=== PATIENT | female | born 1995 | race Caucasian/White ===

== ENCOUNTER 2016-10-09 14:53 | Emergency (ER) | payer BC, OTHER ==
[~2016-10-09] VITALS: Wt 67.0 kg
[2016-10-09] MEDS ORDERED: ONDANSETRON 4 MG INJ IV STA ×2 (17:35→20:30)
[2016-10-09] MEDS ORDERED: SOD CHLORIDE 0.9% 1,000 ML IV ONE (18:00)
--- NOTE | 2016-10-09 18:23 | ERA ---
ER Documentation Chief Complaint Date/Time DATE: 10/09/16 TIME: 18:01 Chief Complaint 8 WEEKS PREG WITH N/V HPI Patient is a 20-year-old female who presents with boyfriend stating that she found out she was 1 week ago. Her last menstrual period started on July 01, 2016. Patient initially saw to get a test because of morning sickness type symptoms. Patient's symptoms include nausea and vomiting and not tolerating liquids or solids by mouth. Patient saw a fertility clinic who told her to come to the ER to see if we could do anything for her. Patient denies any fever, vaginal bleeding/discharge, dysuria, hematuria, abdominal pain, pelvic pain, headache, altered mental status. Nothing makes his symptoms worse except for eating which makes her vomit. Patient states nothing has improved the symptoms. There are no other associated manifestations. Has not taken any medications to relieve symptoms. ROS All systems reviewed and are negative except as per history of present illness. Medications Home Meds Active Scripts Ondansetron (Ondansetron Odt) 4 Mg Tab.rapdis, 4 MG PO Q6H Y for NAUSEA AND/OR VOMITING, #10 TAB Prov:IRENE BANUELOS PA-C 10/09/16 Allergies Allergies: Coded Allergies: No Known Allergy (Unverified , 10/09/16) PMhx/Soc Medical and Surgical Hx: pt denies Medical Hx, pt denies Surgical Hx Hx Alcohol Use: No Hx Substance Use: No Hx Tobacco Use: No Smoking Status: Never smoker Physical Exam Vitals Vital Signs Date Time Temp Pulse Resp B/P Pulse Ox O2 Delivery O2 Flow Rate FiO2 10/09/16 20:46 98.5 83 18 105/67 99 Room Air 10/09/16 15:10 99.0 108 18 129/81 99 Physical Exam Const: Well-appearing 20-year-old female with her Head: Atraumatic Eyes: Normal Conjunctiva ENT: Normal External Ears, Nose and Mouth. Neck: Full range of motion..~ No meningismus. Resp: Clear to auscultation bilaterally Cardio: Regular rate and rhythm, no murmurs Abd: Soft, non tender, non distended. Normal bowel sounds Skin: No petechiae or rashes Back: No midline or flank tenderness Ext: No cyanosis, or edema Neur: Awake and alert Psych: Normal Mood and Affect Results 24 hrs Current Medications Medications (Trade) Dose Ordered Sig/Kia Route PRN Reason Start Time Stop Time Status Last Admin Dose Admin Sodium Chloride (NS) 1,000 ml @ 1,000 mls/hr Q1H ONCE IV 10/09/16 18:00 10/09/16 18:59 DC 10/09/16 18:04 Ondansetron HCl (Zofran Inj) 4 mg ONCE STAT IV 10/09/16 17:35 10/09/16 17:38 DC Ondansetron HCl (Zofran Inj) 4 mg ONCE STAT IV 10/09/16 20:30 10/09/16 20:31 DC 10/09/16 20:36 Procedures/MDM Patient is a 20-year-old female presents with her boyfriend 1 week after finding out she is complaining of nausea and vomiting and not being able to tolerate food or liquids. Patient has no other complaints besides a resting tremor that comes and goes. Has not tried anything to relieve the symptoms. We will go ahead and give her an IV bolus and Zofran for nausea then reevaluate for p.o. tolerance. Patient has expressed concern about using Zofran during . Patient is more than 13 weeks past her last menstrual period. Have educated the patient about the small risk of thrombogenicity. Patient says she was recommended Reglan. Have told the patient that Reglan is also acceptable for and is a category B risk, explaining to her what the category B risk meant. I told the patient that my coworkers and I have mostly prescribed Zofran in the ER for nausea including and patients. Patient said that she is fine with Zofran if there is not a significant risk. Upon reevaluation of the patient she is able to tolerate solids and liquids and is now willing to go home because she says her stomach pain nausea has resolved. Departure Condition: Stable IRENE BANUELOS PA-C Oct 09, 2016 18:23
[2016-10-09 20:46] VITALS: BP 105/67; PULSE 83; RESP 18; TEMP 98.5
[2016-10-09] MEDS ORDERED: ONDA4TAB14 PO (20:52)
== END 2016-10-09 21:03 | disposition home or self-care (01) ==
LOC: FTE 14:53
DX: O21.9 Vomiting of pregnancy, unspecified (principal); Z3A.08 8 weeks gestation of pregnancy
CPT/HCPCS: 96374; 99284; J2405; J7030

== ENCOUNTER 2017-06-01 05:46 | Inpatient (IN) | payer OTHER ==
[~2017-06-01] VITALS: Ht 160 cm; Wt 77.2 kg
[~2017-06-01 05:46] MED LIST: ONDA4TAB14 PO
[2017-06-01] MEDS ORDERED: LACTATED RINGER'S 1,000 ML IV PRN (06:15)
[2017-06-01] MEDS ORDERED: LIDOCAINE 1% (MPF) 30 ML INJ INJ PRN (06:30)
[2017-06-01] MEDS ORDERED: IBUPROFEN 600 MG TAB PO PRN (06:30)
[2017-06-01] MEDS ORDERED: CARBOPROST 250 MCG INJ IM PRN (06:30)
[2017-06-01] MEDS ORDERED: BUTORPHANOL 2 MG INJ IV PRN ×2 (06:30)
[2017-06-01] MEDS ORDERED: HYDROCODONE/APAP (5/325) TAB PO PRN (06:30)
[2017-06-01] MEDS ORDERED: OXYTOCIN 30 UNITS/LR 500 ML IV PRN (06:30)
[2017-06-01] MEDS ORDERED: OXYTOCIN 30 UNITS/LR 500 ML IV SCH ×2 (06:30)
[2017-06-01] MEDS ORDERED: MISOPROSTOL 200 MCG TAB PR PRN (06:30)
[2017-06-01] MEDS ORDERED: METHYLERGONOVINE 0.2 MG INJ IM PRN (06:30)
[2017-06-01 06:34] VITALS: Ht 160 cm; Wt 77.2 kg
[2017-06-01 06:40] VITALS: BP 118/81; PULSE 103; RESP 18
[2017-06-01] MEDS: LACTATED RINGER'S 1,000 ML IV SCH ×3 (06:43→22:03)
[2017-06-01 07:03] LABS: BASOPHIL # 0.1 10^3/ul (0.0-0.1); BASOPHILS % 0.5 % (0.0-2.0); EOSINOPHILS # 0.1 10^3/ul (0.0-0.5); EOSINOPHILS % 0.9 % (0.0-7.0); HEMATOCRIT 37.2 % (37.0-47.0); HEMOGLOBIN 12.3 g/dl (12.0-16.0); LYMPHOCYTES # 1.9 10^3/ul (0.8-2.9); MEAN CORPUSCULAR HEMOGLOBIN 27.6 pg (29.0-33.0); MEAN CORPUSCULAR HGB CONC 33.1 g/dl (32.0-37.0); MEAN CORPUSCULAR VOLUME 83.4 fl (82.0-101.0); MEAN PLATELET VOLUME 12.4 fl (7.4-10.4); MONOCYTE # 0.6 10^3/ul (0.3-0.9); MONOCYTES % 4.9 % (0.0-11.0); NEUTROPHIL # 9.2 10^3/ul (1.6-7.5); NEUTROPHILS % 76.7 % (39.0-77.0); PLATELET COUNT 196 10^3/UL (140-415); RED BLOOD COUNT 4.46 10^6/ul (4.20-5.40); RED CELL DISTRIBUTION WIDTH 14.2 % (11.5-14.5)
[2017-06-01 07:25] LABS: INR 0.93; PARTIAL THROMBOPLASTIN TIME 28.8 Sec (25.0-35.0); PROTIME 12.5 Sec (12.2-14.2)
[2017-06-01 07:28] LABS: ALANINE AMINOTRANSFERASE 28 IU/L (13-69); ALBUMIN 3.4 g/dl (3.3-4.9); ALBUMIN/GLOBULIN RATIO 1.03; ALKALINE PHOSPHATASE 154 IU/L (42-121); ANION GAP 14 (8-16); ASPARTATE AMINO TRANSFERASE 16 IU/L (15-46); BILIRUBIN,INDIRECT 0.3 mg/dl (0-1.1); BILIRUBIN,TOTAL 0.3 mg/dl (0.2-1.3); BLOOD UREA NITROGEN 7 mg/dl (7-20); CALCIUM 9.2 mg/dl (8.4-10.2); CARBON DIOXIDE 23 mmol/L (21-31); CHLORIDE 107 mmol/L (97-110); CREATININE 0.51 mg/dl (0.44-1.00); GLUCOSE 78 mg/dl (70-220); POTASSIUM 4.4 mmol/L (3.5-5.1); SODIUM 140 mmol/L (135-144); TOTAL PROTEIN 6.7 g/dl (6.1-8.1)
[2017-06-01 07:39] LABS: BARBITURATES Negative (NEGATIVE); BENZODIAZEPINES Negative (NEGATIVE); CANNABINOIDS Negative (NEGATIVE); COCAINE Negative (NEGATIVE); OPIATES Negative (NEGATIVE)
--- NOTE | 2017-06-01 08:08 | RADRPT ---
PROCEDURE: US OB. CLINICAL INDICATION: Size and dates TECHNIQUE: Multiple sonographic images of the pelvis and gravid uterus were obtained. The images were reviewed on a PACS workstation. COMPARISON: No prior studies are available for comparison. FINDINGS: There is a single viable intrauterine gestation. Cardiac activity is present with 138 beats per min gerardo. There is a vertex presentation. The placenta is anterior. There is no evidence for an abruption or placenta previa. Measurements were made in order to determine age. The results are as follows: BPD =9.3 cm HC =32.2 cm AC =35.4 cm FL =7.2 cm Estimated gestational age of approximately 37 weeks and 4 days based on ultrasound measurements. Clinical age: 39 weeks and 2 days. The estimated date of delivery is 06/18/17, based on ultrasound measurements. The EFW = 3426 g, 44%, based on LMP age. RPTAT: AA IMPRESSION: Single viable intrauterine gestation of approximately 37 weeks and 4 days based on ultrasound measu rements. Smaller than clinical age by approximately 2 weeks. .Javier Anand MD, MD Date Time Electronically viewed and signed by .Javier Anand MD, on 06/01/2017 08:08 .S/
[2017-06-01] MEDS ORDERED: DINOPROSTONE 10 MG VAG SUPP VAG ONE (09:00)
--- NOTE | 2017-06-01 19:37 | PREOPHP ---
DATE OF ADMISSION: 06/01/2017 HISTORY OF PRESENT ILLNESS: Ms. Azra Ochoa is a 21-year-old 1, para 0 , EDC 06/06/2017, intrauterine at 39 weeks and 2 days gestational age , admitted today for a social induction. The patient reports she lives in [place] and is far from the hospital. She is currently on Cervidil for cervical ripening. She reports positive movement and having regular contractions with the Cervidil. She denies any vaginal bleeding or discharge. Her care took place at the [facility]. MEDICAL HISTORY: None. MEDICATIONS: vitamins. PAST SURGICAL HISTORY: None. OBSTETRIC HISTORY: Primigravid. GYNECOLOGIC HISTORY: 12, regular, 3 to 4 days. Denies any sexually transmitted diseases. Sexually active with 1 partner. SOCIAL HISTORY: Denies any smoking, drugs or alcohol. FAMILY HISTORY: None. REVIEW OF SYSTEMS: All within normal except history of present illness. PHYSICAL EXAMINATION: HEENT: Within normal. LUNGS: CTA bilateral. CARDIOVASCULAR: S1, S2, regular rhythm. ABDOMEN: Gravid, nontender. Negative CVA bilateral. EXTREMITIES: Negative edema. No calf tenderness. PELVIC: Vaginal exam 2, 50, -3. heart tracing category 1. [place]: Regular contractions. ASSESSMENT: A 21-year-old 1, para 0, intrauterine at 39 weeks and 2 days gestational age, admitted for Social induction, currently on Cervidil for cervical ripening. PLAN: I removed Cervidil. The patient will take a shower with pelvic rest and will re-evaluate the patient in 3 to 4 hours for Pitocin induction. Dictated By: IRENE FERGUSON/MAKEDA Conf#: [id number] DID#: [id number] CC: IRENE RED MD;*EndCC* MTDD
[2017-06-01] MEDS ORDERED: OXYTOCIN 30 UNITS in LACTATED RINGER'S 497 ML IV SCH (22:00)
[2017-06-01] MEDS ORDERED: FENTAnyl 2MCG/ML-ROPIV 0.2% 100 ML ONE (23:12)
[2017-06-01] MEDS ORDERED: ONDANSETRON 4 MG INJ IV PRN (23:30)
[2017-06-01] MEDS ORDERED: NALOXONE (0.4 MG/ML) INJ IV PRN (23:30)
[2017-06-01] MEDS ORDERED: DIPHENHYDRAMINE 50 MG INJ IV PRN (23:30)
[2017-06-02] MEDS: FENTAnyl 2MCG/ML-ROPIV 0.2% 100 ML BAG EPI SCH ×4 (06:01→22:59)
--- NOTE | 2017-06-02 06:28 | QN ---
Documentation Comment Progress note labor delivery Patient seen and evaluated awake alert oriented 3 no apparent distress positive epidural Vital signs stable afebrile Abdomen gravid nontender Extremity negative edema no calf tenderness Vaginal exam 3 cm dilated 70% effaced -1 station intact heart rate category 1 [place] regular contractions Assessment interim at 39 weeks gestational age admitted for social induction currently on Pitocin Plan expected vaginal delivery Continue present management IRENE RED MD Jun 02, 2017 06:28
[2017-06-02] MEDS: LACTATED RINGER'S 1,000 ML IV SCH ×3 (06:51→20:17)
[2017-06-02] MEDS ORDERED: PNV11TAB PO (08:12)
[2017-06-02] MEDS ORDERED: DEXTROSE 5%-LR 1,000 ML IV SCH (13:00)
[2017-06-02] MEDS ORDERED: ACETAMINOPHEN 325 MG TAB PO ONE (20:00)
--- NOTE | 2017-06-02 21:30 | QN ---
Documentation Comment requested to insert IUPC by her OB\VE /%/-2 small caput succedaneum noted IUPC was inserted XOCHITL WATSON MD Jun 02, 2017 21:30
[2017-06-03] MEDS ORDERED: CLINDAMYCIN 900 MG/D5W (PMX) 50 ML IV SCH (04:00)
--- NOTE | 2017-06-03 04:12 | QN ---
Documentation Comment patient seen and evaluated patient has no complaints positive epidural vs stable afebrile abd soft gravid nt extremity no edema no calf tenderness ve 5/90/-2 srom fhr cat 1 a/ iup at 39wks ga, in labor, arrest in dilation p/ consent for primary CD r/b/a/ explained consent sign in chart IRENE RED MD Jun 03, 2017 04:12
[2017-06-03] MEDS: GENTAMICIN 120 MG/NS (PMX) 100 ML IVPB SCH (04:17)
[2017-06-03] MEDS ORDERED: LIDOCAINE 2%/EPI 30 ML INJ ONE (04:34)
[2017-06-03] MEDS ORDERED: PHENYLephrine (100 MCG/ML) 5ML SYG ONE ×2 (04:40→05:14)
[2017-06-03] MEDS ORDERED: morphine SULFATE/PF (10 MG/10 ML) INJ ONE (04:53)
--- NOTE | 2017-06-03 05:37 | OPPN ---
Date/Time of Note Date/Time of Note DATE: 06/03/17 TIME: 05:34 Operative Report Planned Procedure Free Text/Dictation iup at 39 wks ga, in labor, arrest of dilation Procedure date Jun 03, 2017 Procedure(s) primary low transverse CD Performed by see signature line [employer] Rep[employer]r Dr. Echevarria Pre-procedure diagnosis iup at 39 wks ga, in labor, arrest of dilation Anesthesia Type: epidural Post-Procedure Post-procedure diagnosis Same Findings Live Baby [male], Apgars [8] and [9], weight [7lb 2oz], position [OP], [vtx] presentation []cord. Estimated Blood Loss: 500 - 600 mls Specimen(s) none Grafts/Implant(s) none Complication(s) none IRENE RED MD Jun 03, 2017 05:37
[2017-06-03] MEDS ORDERED: CARBOPROST 250 MCG INJ IM PRN ×2 (06:00→11:00)
[2017-06-03] MEDS ORDERED: ONDANSETRON 4 MG INJ IV PRN ×2 (06:00)
[2017-06-03] MEDS ORDERED: MISOPROSTOL 200 MCG TAB PR PRN (06:00)
[2017-06-03] MEDS ORDERED: OXYCODONE/ACETAMINOPHEN (5/325) TAB PO PRN ×2 (06:00)
[2017-06-03] MEDS ORDERED: HYDROmorphONE (0.2 MG/ML) 10ML SYG IV PRN ×2 (06:00)
[2017-06-03] MEDS ORDERED: NALOXONE (0.4 MG/ML) INJ IV PRN (06:00)
[2017-06-03] MEDS ORDERED: IBUPROFEN 600 MG TAB PO SCH (06:00)
[2017-06-03] MEDS ORDERED: FENTAnyl 50 MCG/ML VIAL IV PRN ×2 (06:00)
[2017-06-03] MEDS ORDERED: HYDROmorphONE 0.5 MG/0.5 ML SYG IV PRN ×2 (06:00)
[2017-06-03] MEDS ORDERED: KETOROLAC 30 MG INJ IV PRN (06:00)
[2017-06-03] MEDS ORDERED: LANOLIN 7 GM TUBE TOP PRN (06:00)
[2017-06-03] MEDS ORDERED: OXYTOCIN 30 UNITS/LR 500 ML IV PRN (06:00)
[2017-06-03] MEDS ORDERED: DIPHENHYDRAMINE 50 MG INJ IV PRN ×2 (06:00)
[2017-06-03] MEDS ORDERED: METOCLOPRAMIDE 10 MG INJ IV PRN (06:00)
[2017-06-03] MEDS ORDERED: ZOLPIDEM 5 MG TAB PO PRN (06:00)
[2017-06-03] MEDS ORDERED: METHYLERGONOVINE 0.2 MG INJ IM PRN (06:00)
[2017-06-03] MEDS: KETOROLAC 30 MG INJ IV PRN ×2 (07:18→16:18)
[2017-06-03 09:00] VITALS: BP 105/71; PULSE 83; RESP 18
[2017-06-03] MEDS: SENNA/DOCUSATE NA (8.6MG/50MG) TAB PO SCH ×2 (09:00→21:00)
[2017-06-03 09:30] VITALS: BP 102/81; RESP 18
[2017-06-03] MEDS: LACTATED RINGER'S 1,000 ML IV SCH ×2 (11:42→13:37)
[2017-06-03] MEDS: CLINDAMYCIN 900 MG/D5W (PMX) 50 ML IVPB SCH ×2 (11:45→20:22)
--- NOTE | 2017-06-03 14:07 | OPR ---
DATE OF OPERATION: 06/03/2017 PRIMARY DIAGNOSIS: A 21-year-old 1, para 0, intrauterine at 39 weeks gestational age in labor, arrest in dilatation. POSTOPERATIVE DIAGNOSIS: A 21-year-old 1, para 0, intrauterine at 39 weeks gestat ional age in labor, arrest in dilatation. PROCEDURE: Primary low transverse delivery via Pfannenstiel incision. SURGEON: Dr. Ibrahim. FUND CONTROLLER: Dr. Echevarria ANESTHESIA: Epidural. COMPLICATIONS: None. ESTIMATED BLOOD LOSS: 500 mL. FINDINGS: A viable male in cephalic presentation, 8 and 9 respectively at 1 and 5 jennifer ana, weight 7 pounds 2 ounces, in OP presentation. Normal uterus, tubes and ovaries. DESCRIPTION OF PROCEDURE: After explaining the risks, benefits and alternatives and consent signed in chart, the patient was taken to the operating room where epidural anesthesia was found to be adeq uate. She was then prepared and draped in normal sterile fashion in dorsal supine position with a l eftward tilt. A Pfannenstiel skin incision was then made with a scalpel and carried to the underlyi ng layer of the fascia. The fascia was incised in the midline and the incision was extended lateral ly with Angel scissors. The superior aspect of the fascial incision was grasped with A Jessie clamp, elevated and the rectus muscles dissected off bluntly. Attention was then turned to the inferior a spect of the incision which in similar fashion was tented up with curved clamps and the rectus muscl es dissected off bluntly. The rectus muscle was in midline, peritoneum identified, tented up and entered sharply with Metzenbaum scissors. The peritoneal incision was extended superiorly w ith good visualization of bladder. The bladder blade was then inserted and the vesicouterine perito neum identified, grasped with pickups and entered sharply with Metzenbaum scissors. This incision w as extended laterally and a bladder flap created digitally. The bladder blade was then reinserted a nd the lower segment incised in transverse fashion with a scalpel. The uterine incision was then ex tended laterally. The bladder blade was removed and the infant's head delivered atraumatically. Th e nose and mouth were suctioned and cord clamped and cut. The infant was handed off to awaiting ped iatrician. The placenta was then removed. The uterus was exteriorized and cleared of all clots and debris. The uterine incision was repaired with 1-0 chromic in a running locked fashion. A second layer of same suture was used for imbrication and obtained excellent hemostasis. The uterus was ret urned to the abdomen. The gutters were cleared of all clots. The peritoneum and rectus abdominis m uscles were reapproximated with 3-0 Vicryl in interrupted fashion. The fascia was reapproximated wi th 0 Vicryl in a running fashion. The subcutaneous tissue was reapproximated with 2-0 plain gut in a running fashion. The skin was closed with absorbable edgar. The patient tolerated procedure we ll. Sponge, lap and needle counts correct x2. The patient was taken to recovery room in stable con dition. Dictated By: IRENE FERGUSON/MAKEDA Conf#: [id number] DID#: [id number]
[2017-06-03 16:00] VITALS: BP 111/71; PULSE 105; RESP 20
[2017-06-03 20:00] VITALS: BP 102/71; PULSE 87; RESP 18
[2017-06-04] VITALS: BP 106/65; PULSE 90; RESP 18
[2017-06-04 04:00] VITALS: BP 110/74; PULSE 100; RESP 18
[2017-06-04] MEDS: LACTATED RINGER'S 1,000 ML IV SCH ×3 (04:17→21:37)
[2017-06-04] MEDS: CLINDAMYCIN 900 MG/D5W (PMX) 50 ML IVPB SCH (04:17)
[2017-06-04] MEDS: GENTAMICIN 120 MG/NS (PMX) 100 ML IVPB SCH (04:40)
[2017-06-04] MEDS ORDERED: OXYCODONE/ACETAMINOPHEN (5/325) TAB PO PRN ×2 (05:00)
[2017-06-04] MEDS: IBUPROFEN 600 MG TAB PO SCH ×3 (06:30→17:11)
[2017-06-04 08:28] VITALS: BP 106/67; PULSE 76; RESP 18
[2017-06-04] MEDS: SENNA/DOCUSATE NA (8.6MG/50MG) TAB PO SCH ×2 (08:52→20:49)
[2017-06-04 09:42] LABS: BASOPHIL # 0.1 10^3/ul (0.0-0.1); BASOPHILS % 0.4 % (0.0-2.0); EOSINOPHILS # 0.1 10^3/ul (0.0-0.5); EOSINOPHILS % 0.4 % (0.0-7.0); HEMATOCRIT 27.9 % (37.0-47.0); HEMOGLOBIN 9.1 g/dl (12.0-16.0); LYMPHOCYTES # 1.1 10^3/ul (0.8-2.9); LYMPHOCYTES % 7.9 % (15.0-51.0); MEAN CORPUSCULAR HEMOGLOBIN 27.8 pg (29.0-33.0); MEAN CORPUSCULAR HGB CONC 32.6 g/dl (32.0-37.0); MEAN CORPUSCULAR VOLUME 85.3 fl (82.0-101.0); MEAN PLATELET VOLUME 12.1 fl (7.4-10.4); MONOCYTE # 0.8 10^3/ul (0.3-0.9); MONOCYTES % 5.9 % (0.0-11.0); NEUTROPHIL # 11.6 10^3/ul (1.6-7.5); NEUTROPHILS % 84.7 % (39.0-77.0); PLATELET COUNT 165 10^3/UL (140-415); RED BLOOD COUNT 3.27 10^6/ul (4.20-5.40); RED CELL DISTRIBUTION WIDTH 14.6 % (11.5-14.5); WHITE BLOOD COUNT 13.7 10^3/ul (4.8-10.8)
--- NOTE | 2017-06-04 11:20 | QN ---
Documentation Comment Progress note postoperative day 1 seen and evaluated awake alert oriented 3 positive ambulation positive voiding positive flatulence Vital signs stable afebrile Abdomen soft nontender negative distention uterine fundus below umbilicus firm dressing clean and dry Extremity negative edema no calf tenderness Assessment status post primary low transverse delivery postop day 1 stable afebrile Plan iron supplement IRENE RED MD Jun 04, 2017 11:19
--- NOTE | 2017-06-04 15:38 | CONS ---
Date/Time of Note Date/Time of Note DATE: 06/04/17 TIME: 15:36 Consultation Date/Type/Reason Admit Date/Time Jun 01, 2017 at 05:46 Initial Consult Date 06/04/17 Type of Consultation: Anesthesiology Reason for Consultation follow up 24 HR Interval Summary Free Text/Dictation pt seen and examined at bedside is POD#1 s/p c/s. Pt received duramorph through epidural for post op pain relief. She states her pain is controlled adequately. No N/V/D/C/BADILLO/Numbness in extremities. Will follow. Constitutional: improved, no complaints Exam/Review of Systems Vital Signs Vitals Vital Signs Date Time Temp Pulse Resp B/P Pulse Ox O2 Delivery O2 Flow Rate FiO2 06/04/17 08:28 98.2 76 18 106/67 Room Air Intake and Output 06/03/17 06/03/17 06/04/17 15:00 23:00 07:00 Output Total 800 ml 1200 ml 1100 ml Balance -800 ml -1200 ml -1100 ml Results Result Diagram: 06/04/17 0916 06/01/17 0637 Results 24 hrs Laboratory Tests Test 06/04/17 09:16 White Blood Count 13.7 H Red Blood Count 3.27 #L Hemoglobin 9.1 #L Hematocrit 27.9 #L Mean Corpuscular Volume 85.3 Mean Corpuscular Hemoglobin 27.8 L Mean Corpuscular Hemoglobin Concent 32.6 Red Cell Distribution Width 14.6 H Platelet Count 165 Mean Platelet Volume 12.1 H Neutrophils % 84.7 H Lymphocytes % 7.9 L Monocytes % 5.9 Eosinophils % 0.4 Basophils % 0.4 Nucleated Red Blood Cells % 0.0 Neutrophils # 11.6 H Lymphocytes # 1.1 Monocytes # 0.8 Eosinophils # 0.1 Basophils # 0.1 Nucleated Red Blood Cells # 0.0 Medications Medications Current Medications Acetaminophen/ Hydrocodone Bitart 2 tab 2 tab ONCE PRN PO Moderate to Severe Pain (4-10); Start 06/01/17 at 06:30 Lactated Ringer's (Lr) 1,000 ml @ 125 mls/hr Q8H IV Last administered on 06/04t 04:17; Admin Dose 125 MLS/HR; Start 06/03/17 at 05:37 Simethicone (Mylicon) 160 mg Q8H PRN PO DISTENSION/GAS/BLOATING; Start at 06:00 Senna/Docusate Sodium 1 tab 1 tab BID PO Last administered on 06/04/17 08:52 ; Admin Dose 1 TAB; Start 06/03/17 at 09:00 Oxytocin/Lactated Ringer's 500 ml @ 0 mls/hr ONCE PRN IV For Hemorrhage Management; Start 06/03/17 at 06:00 Methylergonovine Maleate (Methergine) 0.2 mg ONCE PRN IM VAGINAL BLEEDING; Start 06/03/17 at 06:00 Misoprostol (Cytotec) 1,000 mcg ONCE PRN TN VAGINAL BLEEDING; Start 06/03/17 at 06:00 Ibuprofen (Motrin) 600 mg Q6 PO Last administered on 06/04/17 12:00; Admin Dose 600 MG; Start 06/04/17 at 06:00 Oxycodone/ Acetaminophen (Percocet (5/ 325)) 1 tab Q4H PRN PO PAIN LEVEL 4-6; Start 06/04/17 at 05:00 Oxycodone/ Acetaminophen (Percocet (5/ 325)) 2 tab Q4H PRN PO PAIN LEVEL 7-10; Start 06/04/17 at 05:00 Carboprost Tromethamine (Hemabate) 250 mcg PRN PRN IM BLEEDING; Start at 11:00 Ferrous Sulfate (Ferrous Sulfate (Ec)) 325 mg BID PO ; Start 06/04/17 at 21:00 DA GALINDO Jun 04, 2017 15:38
[2017-06-04 15:52] VITALS: BP 112/72; PULSE 97; RESP 18
[2017-06-04 20:00] VITALS: BP 114/76; PULSE 97; RESP 19
[2017-06-04] MEDS: FERROUS SULFATE (EC) 325 MG TAB PO SCH (20:49)
[2017-06-05] MEDS: IBUPROFEN 600 MG TAB PO SCH ×3 (00:32→12:25)
[2017-06-05 04:00] VITALS: BP 103/74; PULSE 94; RESP 19
[2017-06-05 08:20] VITALS: BP 110/72; PULSE 94; RESP 18
[2017-06-05] MEDS: SENNA/DOCUSATE NA (8.6MG/50MG) TAB PO SCH (09:47)
[2017-06-05] MEDS: FERROUS SULFATE (EC) 325 MG TAB PO SCH (09:48)
--- NOTE | 2017-06-05 12:13 | QN ---
Documentation Comment POD#2 is stable afebrile tolerates diet No Vb +Flatus +voids VS stable Gen NAD Abd soft NT ND Incision intact Genitalaia No blood at perinium --->discharge Home EDE BRIDGES M.D. Jun 05, 2017 12:13
--- NOTE | 2017-06-05 12:14 | DS ---
Date/Time of Note Date/Time of Note DATE: 06/05/17 TIME: 12:13 Discharge Summary Admission/Discharge Info Admit Date/Time Jun 01, 2017 at 05:46 Discharge Date/Time Discharge Diagnosis Procedures c/s Hospital Course uneventful Home Meds Active Scripts Ondansetron (Ondansetron Odt) 4 Mg Tab.rapdis, 4 MG PO Q6H Y for NAUSEA AND/OR VOMITING, #10 TAB Prov:IRENE BANUELOS PA-C 10/09/16 Reported Medications [id number] ( 19) 1 Each Tablet, 1 TAB PO DAILY, TAB 06/02/17 Primary Care Provider MD YULIANA Oquendo RAMIN M.D. Jun 05, 2017 12:14
== END 2017-06-05 13:35 | disposition home or self-care (01) | DRG 766 ==
LOC: L-D 05:46 → PP1 06-03 09:23
PROVIDERS: ADMIT Obstetrics & Gynecology; ATTEND Obstetrics & Gynecology
PROC: 10D00Z1 Extraction of Products of Conception, Low, Open Approach (ICD-10-PCS; principal; 2017-06-03)
PROC: 3E033VJ Introduction of Other Hormone into Peripheral Vein, Percutaneous Approach (ICD-10-PCS; 2017-06-03)
DX: O64.0XX0 Obstructed labor due to incomplete rotation of fetal head, not applicable or unspecified (principal); Z37.0 Single live birth; Z3A.39 39 weeks gestation of pregnancy
CPT/HCPCS: 62319; 76815; 80053; 80307; 85025; 85610; 85730; 86592; 86850; 86900; 86901; 87340; 99464; J0595; J1170; J1580; J1885; J2210; J2274; J2370; J2590; J3010; J7120; J7121